=== PATIENT | female | born 1950 | race Caucasian/White ===

== ENCOUNTER 2017-01-25 06:45 | Day surgery (SDC) | payer OTHER ==
[~2017-01-25] VITALS: Ht 154.9 cm; Wt 87.5 kg
[~2017-01-25 06:45] MED LIST: AUG500 PO; LAC PO; NORCO1 TA2 PO
[2017-01-25 07:25] VITALS: BP 126/79
[2017-01-25 10:21] VITALS: BP 116/74
== END 2017-01-25 10:05 | disposition home or self-care (01) ==
LOC: GI 06:45 → OR 07:30 → GI 07:30
PROVIDERS: Internal Medicine Gastroenterology
PROC: 0D738ZZ Dilation of Lower Esophagus, Via Natural or Artificial Opening Endoscopic (ICD-10-PCS; principal; 2017-01-25 07:30)
PROC: 0DB68ZZ Excision of Stomach, Via Natural or Artificial Opening Endoscopic (ICD-10-PCS; 2017-01-25 07:30)
DX: K22.2 Esophageal obstruction (principal); K44.9 Diaphragmatic hernia without obstruction or gangrene; R13.10 Dysphagia, unspecified
CPT/HCPCS: 43220; 43235; C1769; J1200; J1610; J2250; J2310; J3010; J3490

== ENCOUNTER 2019-09-15 11:13 | Inpatient (IN) | payer OTHER ==
[~2019-09-15] VITALS: Ht 157.5 cm; Wt 66.8 kg
[2019-09-15 12:33] LABS: PLATELET COUNT 183 x10^3mcL (130-400)
[2019-09-15 12:45] LABS: RED CELL DISTRIBUTION WIDTH 23.2 % (11.5-14.5)
[2019-09-15 12:50] LABS: microscopic required? YES; urine erythrocyte NEGATIVE (NEGATIVE)
[2019-09-15 13:11] LABS: ALKALINE PHOSPHATASE 148 U/L (46-116); ALT/SGPT 40 U/L (14-59); AST/SGOT 38 U/L (15-37); BILIRUBIN TOTAL 1.59 mg/dL (0.20-1.00); CALCIUM 7.3 mg/dL (8.5-10.1); CARBON DIOXIDE 26.7 mmol/L (21-32); CHLORIDE SERUM 103 mmol/L (98-107); CREATININE SERUM 0.6 mg/dL (0.6-1.0); GFR1 > 60 mL/min; GLUCOSE SERUM 114 mg/dL (74-106); MAGNESIUM 2.1 mg/dL (1.8-2.4); POTASSIUM SERUM 3.6 mmol/L (3.5-5.1); SODIUM SERUM 139 mmol/L (136-145); TOTAL PROTEIN, SERUM 5.3 g/dL (6.4-8.2)
[2019-09-15 13:25] LABS: BAND NEUTROPHIL 0 % (0-10); SEGMENTED NEUTROPHILS 64 % (37-75)
[2019-09-15 13:26] LABS: ATYPICAL LYMPH 0 %; BASOPHIL 0 % (0-2); MONOCYTE 8 % (0-7); rbc morphology (normal/abnorm) ABNORMAL (NORMAL)
[2019-09-15 13:27] LABS: PLATELET MORPHOLOGY PLATELETS DECREASED; ovalocyte/elliptocyte 2+
[2019-09-15] MEDS ORDERED: ZOF20I (15:17)
[2019-09-15] MEDS ORDERED: DECADRON4 MG PO (15:17)
[2019-09-15] MEDS ORDERED: ELIQUIS5 M1 PO (15:17)
[2019-09-15] MEDS ORDERED: PACLITAXEL6 MG/1 ML (15:18)
[2019-09-15] MEDS ORDERED: TECENTRIQ IV (15:18)
[2019-09-15 20:23] VITALS: BP 126/71
[2019-09-15 20:34] VITALS: BP 126/71
[2019-09-15 20:43] VITALS: Ht 157.5 cm; Wt 66.8 kg
[2019-09-15 21:20] VITALS: BP 126/71
[2019-09-16 05:34] VITALS: BP 116/70
[2019-09-16 08:40] VITALS: BP 113/65
[2019-09-16 12:51] VITALS: BP 122/69
[2019-09-16 16:22] VITALS: BP 117/64
== END 2019-09-16 19:08 | disposition short-term general hospital (02) | DRG 194 ==
LOC: ED 11:13 → DU 16:35
PROVIDERS: Emergency Medicine; ADMIT Internal Medicine Pulmonary Disease
DX: J18.9 Pneumonia, unspecified organism (principal); N39.0 Urinary tract infection, site not specified; C78.00 Secondary malignant neoplasm of unspecified lung; C79.31 Secondary malignant neoplasm of brain; C79.51 Secondary malignant neoplasm of bone; C50.919 Malignant neoplasm of unspecified site of unspecified female breast; Z66 Do not resuscitate; D70.9 Neutropenia, unspecified; Z79.01 Long term (current) use of anticoagulants; Z86.718 Personal history of other venous thrombosis and embolism
CPT/HCPCS: 87804; G0378; J0696; J7030; J7620; J8540; Q0092